=== PATIENT | female | born 1955 | race Two or more races ===

== ENCOUNTER 2020-11-04 21:09 | Emergency (ER) | payer BC ==
[~2020-11-04] VITALS: Ht 160 cm; Wt 72.6 kg
--- NOTE | 2020-11-04 21:20 | NUR ---
MD Augustine in room to do MSE.
[2020-11-04] MEDS ORDERED: LIDOCAINE HCL 1% 20 ML VIAL TP ONE (21:30)
[2020-11-04] MEDS ORDERED: MORPHINE SULFATE 4 MG/1 ML DISP.SYRIN IM ONE (21:30)
[2020-11-04] MEDS ORDERED: LIDOCAINE HCL 1% 20 ML VIAL ONE (21:39)
[2020-11-04] MEDS ORDERED: MORPHINE SULFATE 4 MG/1 ML DISP.SYRIN ONE ×2 (21:40→23:10)
--- NOTE | 2020-11-04 21:42 | NUR ---
catheterization laboratory technician in room to do x-ray of patient.
--- NOTE | 2020-11-04 21:54 | NUR ---
Patient taken by electronic lab technician out for CT scan.
--- NOTE | 2020-11-04 22:15 | NUR ---
Patient states 9/10 pain of L knee. MD Augustine aware.
--- NOTE | 2020-11-04 22:28 | NUR ---
MD Augustine at bedside doing suture.
[2020-11-04] MEDS ORDERED: HYDR-4209 PO (22:55)
[2020-11-04] MEDS ORDERED: MORPHINE SULFATE 2 MG/1 ML DISP.SYRIN IM ONE (23:00)
--- NOTE | 2020-11-04 23:28 | NUR ---
atmospheric technician in room to take x-ray of L shoulder.
[2020-11-05 00:20] VITALS: BP 146/92
--- NOTE | 2020-11-05 00:20 | NUR ---
Patient discharged to home in stable condition. Written and verbal after care instructions given. Patient verbalizes understanding of instructions. Stressed follow up or return to ER for worsening s/s. Patient ambulates with steady gait using crutches and knee immobilizer, paper Rx given, copy of CT/X-rays given, patient left with all personal belongings.
== END 2020-11-05 00:20 | disposition home or self-care (01) ==
LOC: ER 21:17
DX: S01.521A Laceration with foreign body of lip, initial encounter (principal); S02.5XXA Fracture of tooth (traumatic), initial encounter for closed fracture; S09.90XA Unspecified injury of head, initial encounter; S80.02XA Contusion of left knee, initial encounter; S70.02XA Contusion of left hip, initial encounter; W01.0XXA Fall on same level from slipping, tripping and stumbling without subsequent striking against object, initial encounter; Y92.012 Bathroom of single-family (private) house as the place of occurrence of the external cause; Y93.E8 Activity, other personal hygiene; Y99.8 Other external cause status; F17.210 Nicotine dependence, cigarettes, uncomplicated; Z87.892 Personal history of anaphylaxis; Z91.041 Radiographic dye allergy status; Z85.3 Personal history of malignant neoplasm of breast; G20 Parkinson's disease; Z91.81 History of falling; R03.0 Elevated blood-pressure reading, without diagnosis of hypertension; M26.659 Arthropathy of unspecified temporomandibular joint
CPT/HCPCS: 12011; 29505; 70450; 70486; 73030; 73502; 73564; 96372 ×2; 99285; J2270 ×2; J3490; A4217; A4663